=== PATIENT | female | born 1985 | race Caucasian/White ===

== ENCOUNTER 2017-08-15 00:28 | Emergency (ER) | payer BC ==
[~2017-08-15] VITALS: Ht 149.9 cm; Wt 54.4 kg
[2017-08-15 01:51] LABS: BASOPHILS ABSOLUTE AUTO 0.04 K/mm3 (0.00-0.23); BASOPHILS PERCENT AUTO 0 % (0-2); EOSINOPHILS ABSOLUTE AUTO 0.16 K/mm3 (0.00-0.68); EOSINOPHILS PERCENT AUTO 1 % (0-6); Hematocrit 39.5 % (33.0-51.0); Hemoglobin 13.3 g/dL (11.5-16.0); IMMATURE GRAN ABSOLUTE AUTO 0.04 K/mm3 (0.00-0.10); IMMATURE GRAN PERCENT AUTO 0 % (0-1); LYMPHOCYTES ABSOLUTE AUTO 3.52 K/mm3 (0.84-5.20); LYMPHOCYTES PERCENT AUTO 28 % (21-46); MONOCYTES ABSOLUTE AUTO 0.81 K/mm3 (0.16-1.47); MONOCYTES PERCENT AUTO 7 % (4-13); Mean Corpuscular HGB 31.1 pg (26.0-34.0); Mean Corpuscular HGB Conc 33.7 g/dL (31.5-36.5); Mean Corpuscular Volume 92 fL (80-100); Mean Platelet Volume 9.7 fL (9.1-12.4); NEUTROPHILS ABSOLUTE AUTO 7.83 K/mm3 (1.96-9.15); NEUTROPHILS PERCENT AUTO 63 % (41-73); Platelet Count 294 K/mm3 (150-400); RDW Coefficient Variation 12.2 % (11.7-14.2); RDW Standard Deviation 41.5 fL (35.1-46.3); Red Blood Cell Count 4.28 M/mm3 (3.80-5.20)
[2017-08-15 02:05] LABS: Alanine Aminotransfer (ALT/SGP 24 U/L (12-78); Albumin, Blood 3.6 g/dL (3.4-5.0); Albumin/Globulin Ratio 1.1 (0.8-1.8); Alk Phos 76 U/L (50-136); Anion Gap 8 mmol/L (6-16); Aspartate Aminotrans (AST/SGOT 18 U/L (12-37); Bilirubin, Total 0.2 mg/dL (0.1-1.0); Blood Urea Nitrogen 9 mg/dL (8-24); Bun/Creatinine Ratio 12.8 (12.0-20.0); CO2, Blood 23 mmol/L (21-32); Calcium, Blood 8.3 mg/dL (8.5-10.1); Chloride, Blood 110 mmol/L (98-108); Creatinine, Blood 0.71 mg/dL (0.40-1.00); Globulin, Blood 3.4 g/dL (2.2-4.0); Glomerular Filtration Rate >60 (60-); Glucose, Blood 100 mg/dL (70-99); Potassium, Blood 3.4 mmol/L (3.5-5.5); Sodium, Blood 141 mmol/L (136-145); Troponin I <0.015 ng/mL (0.000-0.040)
[2017-08-15 02:08] LABS: Free Thyroxine 1.19 ng/dL (0.70-1.60)
== END 2017-08-15 03:34 | disposition home or self-care (01) ==
LOC: ER 00:28
PROVIDERS: Emergency Medicine
DX: R00.0 Tachycardia, unspecified (principal); F17.210 Nicotine dependence, cigarettes, uncomplicated
CPT/HCPCS: 36415; 80053; 84439; 84443; 84484; 84703; 85025; 93005; 93010; 99283

== ENCOUNTER → 2018-07-17 | Outpatient (CLI) | payer BC | END | disposition home or self-care (01) | LOC: LAB SHORT 16:45 → LAB 16:45 | PROVIDERS: Nurse Practitioner | DX: Z01.419 Encounter for gynecological examination (general) (routine) without abnormal findings (principal) | CPT/HCPCS: G0145 ==

== ENCOUNTER 2020-08-05 06:24 | Day surgery (SDC) | payer BC ==
[~2020-08-05] VITALS: Ht 149.9 cm; Wt 51.2 kg
[~2020-08-05 06:24] MED LIST: Nicoderm Cq1 EACH TOP
--- NOTE | 2020-08-05 09:42 | NUR ---
Dressing to procedure site clean, dry, intact with no visible drainage, swelling, erythema or bruising noted.
--- NOTE | 2020-08-05 10:35 | NUR ---
Dressing to procedure site clean, dry, intact with no visible drainage, swelling, erythema or bruising noted. PT provided ice pack and abd binder, instructed how to use. Patient up to Ambulate independently. Gait steady. Discharge instructions reviewed with patient. Patient verbalizes understanding. Copy given to patient to take home. Patient States Post-Procedure ride home has been arranged. Discharged via wheelchair to private car for ride home.
--- NOTE | 2020-08-06 10:08 | NUR ---
08/06/20 1008 Karolyn Oscar VERIFICATIONS: EDIT CHART.
== END 2020-08-05 10:38 | disposition home or self-care (01) ==
LOC: ORSCMMR 06:24 → ORD 08:00 → ORSCMMR 10:38
PROVIDERS: Surgery
PROC: 0WUF0JZ Supplement Abdominal Wall with Synthetic Substitute, Open Approach (ICD-10-PCS; principal; 2020-08-05 08:00)
DX: K43.9 Ventral hernia without obstruction or gangrene (principal); F17.210 Nicotine dependence, cigarettes, uncomplicated
CPT/HCPCS: A9270; C1781; J0690; J1100; J1885; J2250; J2405; J2704; J3010; J7120

== ENCOUNTER → 2023-03-03 | Outpatient (CLI) | payer OTHER | END | disposition home or self-care (01) | LOC: LAB SHORT 18:59 → LAB 18:59 | DX: N39.0 Urinary tract infection, site not specified (principal) | CPT/HCPCS: 87077; 87086; 87186 ==

== ENCOUNTER 2023-04-16 09:10 | Emergency (ER) | payer BC, OTHER ==
[~2023-04-16] VITALS: Ht 149.9 cm; Wt 56.7 kg
[2023-04-16] MEDS ORDERED: IBU800 M1 PO (09:37)
[2023-04-16 10:02] LABS: BASOPHILS ABSOLUTE AUTO 0.04 K/mm3 (0.00-0.23); BASOPHILS PERCENT AUTO 0 % (0-2); EOSINOPHILS ABSOLUTE AUTO 0.19 K/mm3 (0.00-0.68); EOSINOPHILS PERCENT AUTO 1 % (0-6); Hematocrit 40.9 % (33.0-51.0); Hemoglobin 13.8 g/dL (11.5-16.0); IMMATURE GRAN ABSOLUTE AUTO 0.08 K/mm3 (0.00-0.10); IMMATURE GRAN PERCENT AUTO 1 % (0-1); LYMPHOCYTES ABSOLUTE AUTO 2.04 K/mm3 (0.84-5.20); LYMPHOCYTES PERCENT AUTO 13 % (21-46); MONOCYTES ABSOLUTE AUTO 1.08 K/mm3 (0.16-1.47); MONOCYTES PERCENT AUTO 7 % (4-13); Mean Corpuscular HGB 31.6 pg (26.0-34.0); Mean Corpuscular HGB Conc 33.7 g/dL (31.5-36.5); Mean Corpuscular Volume 94 fL (80-100); Mean Platelet Volume 9.7 fL (9.1-12.4); NEUTROPHILS ABSOLUTE AUTO 12.26 K/mm3 (1.96-9.15); NEUTROPHILS PERCENT AUTO 78 % (41-73); Platelet Count 326 K/mm3 (150-400); RDW Standard Deviation 44.9 fL (35.1-46.3); Red Blood Cell Count 4.37 M/mm3 (3.80-5.20); White Blood Cell Count 15.69 K/mm3 (4.00-11.30)
[2023-04-16 10:39] LABS: Albumin, Blood 3.6 g/dL (3.4-5.0); Bilirubin, Direct 0.2 mg/dL (0.0-0.3); Bilirubin, Indirect 0.5 mg/dL (0.1-0.7); Bilirubin, Total 0.7 mg/dL (0.1-1.0); Bun/Creatinine Ratio 16.5 (12.0-20.0); Calcium, Blood 8.4 mg/dL (8.5-10.1); Creatinine, Blood 0.67 mg/dL (0.40-1.00); Globulin, Blood 3.5 g/dL (2.2-4.0); Potassium, Blood 3.9 mmol/L (3.5-5.5); Total Protein, Blood 7.1 g/dL (6.4-8.2)
[2023-04-16] MEDS ORDERED: ONDA4ODT MM (12:40)
[2023-04-16 12:55] VITALS: BP 111/70
== END 2023-04-16 12:59 | disposition home or self-care (01) ==
LOC: ER 09:10
PROVIDERS: Student in an Organized Health Care Education/Training Program
DX: K52.9 Noninfective gastroenteritis and colitis, unspecified (principal); N39.0 Urinary tract infection, site not specified; Z79.899 Other long term (current) drug therapy; Z87.891 Personal history of nicotine dependence
CPT/HCPCS: 74177; 80048; 80076; 83690; 84703; 85025; 96361; 96374-59; 96375; 99284-25; A9270; J1885; J2405; J7030; Q9967

== ENCOUNTER → 2023-04-24 | Outpatient (CLI) | payer OTHER ==
[~2023-04-24] MED LIST changes: +IBU800 M1 PO; +ONDA4ODT MM
== END | disposition home or self-care (01) ==
LOC: LAB SHORT 07:21 → PLD 07:21
DX: R87.619 Unspecified abnormal cytological findings in specimens from cervix uteri (principal)
CPT/HCPCS: 88305

== ENCOUNTER 2023-06-22 10:37 | Day surgery (SDC) | payer OTHER ==
[~2023-06-22] VITALS: Ht 149.9 cm; Wt 56.5 kg
--- NOTE | 2023-06-22 12:22 | NUR ---
06/22/23 1222 Maria Del Carmen Gibson 30 MLS OF LIDOCAINE 1% MIXED WITH 10 UNITS OF VASOPRESSIN PER DR KUNZ FOR INJECTION AT OPSITE.
[2023-06-22 13:35] VITALS: BP 117/76
--- NOTE | 2023-06-22 14:00 | NUR ---
06/22/23 1400 MARIO ALBERTO CARRANZA PT URINATED PRIOR TO DC:CLEAR,COPIOUS AND W/OUT PAIN. END NOTE RDS.
== END 2023-06-22 13:45 | disposition home or self-care (01) ==
LOC: ORSCSDS 10:37
PROVIDERS: Obstetrics & Gynecology
PROC: 0UBC7ZX Excision of Cervix, Via Natural or Artificial Opening, Diagnostic (ICD-10-PCS; principal; 2023-06-22 12:00)
DX: D06.9 Carcinoma in situ of cervix, unspecified (principal); F17.210 Nicotine dependence, cigarettes, uncomplicated
CPT/HCPCS: 88305; A9270; J1100; J1885; J2001; J2250; J2405; J3010

== ENCOUNTER → 2023-08-10 | Outpatient (CLI) | payer OTHER ==
[2023-08-10 15:59] LABS: Source, Urine Clean Catch
[2023-08-10 17:14] LABS: Appearance, Urine Clear (Clear); Bilirubin, Urine Neg (Neg); Blood, Urine 1+ (Neg); Color, Urine Yellow (P-Yellow); Glucose Qualitative, Urine Neg (Neg); Ketones, Urine Neg (Neg); Leukocyte Esterase, Urine 1+ (Neg); Nitrite, Urine Neg (Neg); Protein, Urine Neg (Neg); Urobilinogen, Urine NORM (Normal); pH, Urine 6.5 (5.0-8.0)
[2023-08-10 17:22] LABS: Bacteria Mod /hpf; Squamous Epithelial Cells Rare /hpf (Few)
== END ==
LOC: LAB 15:57 → LAB SHORT 15:57
PROVIDERS: Obstetrics & Gynecology
DX: R30.0 Dysuria (principal)
CPT/HCPCS: 81001; 87077; 87086; 87186

== ENCOUNTER → 2023-10-30 | Outpatient (CLI) | payer OTHER ==
[2023-11-02 13:51] LABS: APTIMA MEDIA TYPE Urine; C. TRACHOMATIS BY TMA Negative (Negative); N. GONORRHOEAE BY TMA Negative (Negative); SPECIMEN SOURCE Urine
== END ==
LOC: LAB SHORT 16:43 → LAB 16:43
PROVIDERS: Obstetrics & Gynecology
DX: Z11.3 Encounter for screening for infections with a predominantly sexual mode of transmission (principal)
CPT/HCPCS: 87491; 87591

== ENCOUNTER → 2024-03-19 | Outpatient (CLI) | payer OTHER | END | disposition home or self-care (01) | LOC: LAB 08:50 → LAB SHORT 08:50 | DX: O09.521 Supervision of elderly multigravida, first trimester (principal) | CPT/HCPCS: 87081; 87150 ==

== ENCOUNTER 2024-04-15 08:33 | Inpatient (IN) | payer OTHER ==
[2024-04-15] VITALS (22 sets, daily range): BP systolic 111–150; BP diastolic 69–94
[~2024-04-15] VITALS: Ht 149.9 cm; Wt 73.2 kg
[2024-04-15] MEDS ORDERED: PRENATAL TABLE1 EAC2 (10:51)
[2024-04-15] MEDS ORDERED: OMEP20ER PO (10:51)
[2024-04-15] MEDS ORDERED: Carboprost Tromethamine 250 MCG/ML 1ML Amp IM PRN (11:10)
[2024-04-15] MEDS ORDERED: Acetaminophen 500 MG Tab PO PRN (11:10)
[2024-04-15] MEDS ORDERED: Ondansetron HCl 2 MG / ML 2ML Vial IV PRN (11:10)
[2024-04-15] MEDS ORDERED: Penicillin G Potassium 5,000,000 UNITS in NS 250 ML IV ONE (11:10)
[2024-04-15] MEDS ORDERED: Tranexamic Acid 100 ML IV SCH (11:10)
[2024-04-15] MEDS ORDERED: Misoprostol 200 MCG Tab BC PRN (11:10)
[2024-04-15] MEDS ORDERED: OXYTOCIN/RINGER'S LACTATE 500 ML IV PRN (11:10)
[2024-04-15] MEDS ORDERED: Lactated Ringer's 1,000 ML IV PRN (11:10)
[2024-04-15] MEDS ORDERED: Oxytocin 10 Unit / ML Vial IM PRN (11:10)
[2024-04-15] MEDS ORDERED: Misoprostol 200 MCG Tab PR PRN (11:10)
[2024-04-15] MEDS ORDERED: Methylergonovine Maleate 0.2MG / ML 1ML Amp IM PRN (11:10)
[2024-04-15] MEDS ORDERED: FentaNYL Citrate 50 MCG/ML 2 ML Injection IV PRN (11:10)
[2024-04-15] MEDS ORDERED: Calcium Carbonate 500 MG Tab Chew PO SCH (11:15)
[2024-04-15 11:43] LABS: BASOPHILS ABSOLUTE AUTO 0.03 K/mm3 (0.00-0.23); BASOPHILS PERCENT AUTO 0 % (0-2); EOSINOPHILS ABSOLUTE AUTO 0.06 K/mm3 (0.00-0.68); EOSINOPHILS PERCENT AUTO 1 % (0-6); Hematocrit 37.2 % (33.0-51.0); Hemoglobin 12.8 g/dL (11.5-16.0); IMMATURE GRAN PERCENT AUTO 1 % (0-1); LYMPHOCYTES PERCENT AUTO 17 % (21-46); MONOCYTES ABSOLUTE AUTO 0.85 K/mm3 (0.16-1.47); MONOCYTES PERCENT AUTO 7 % (4-13); Mean Corpuscular HGB 31.5 pg (26.0-34.0); Mean Corpuscular HGB Conc 34.4 g/dL (31.5-36.5); Mean Corpuscular Volume 92 fL (80-100); Mean Platelet Volume 10.4 fL (9.1-12.4); NEUTROPHILS ABSOLUTE AUTO 9.17 K/mm3 (1.96-9.15); NEUTROPHILS PERCENT AUTO 75 % (41-73); Platelet Count 231 K/mm3 (150-400); RDW Coefficient Variation 14.3 % (11.7-14.2); RDW Standard Deviation 47.4 fL (35.1-46.3); Red Blood Cell Count 4.06 M/mm3 (3.80-5.20); White Blood Cell Count 12.31 K/mm3 (4.00-11.30)
[2024-04-15] MEDS ORDERED: FentaNYL 2mcg/ml-Bup 0.1% Epd 250 ML EPI PRN (14:20)
[2024-04-15] MEDS ORDERED: Lactated Ringer's 1,000 ML IV SCH ×2 (14:20)
[2024-04-15] MEDS ORDERED: ePHEDrine Sulfate 50 MG/ML 1ML Injection XX PRN (14:20)
[2024-04-15] MEDS ORDERED: Penicillin G Potassium 2,500,000 UNITS in Dextrose 5% 100 ML IV SCH (15:00)
[2024-04-16] VITALS (15 sets, daily range): BP systolic 117–140; BP diastolic 64–88
[2024-04-16] MEDS ORDERED: Ketorolac Tromethamine 30mg Vial IV PRN (04:15)
[2024-04-16] MEDS ORDERED: Lactated Ringer's 1,000 ML IV SCH (04:15)
[2024-04-16] MEDS ORDERED: Lanolin Cream TOP PRN (04:15)
[2024-04-16] MEDS ORDERED: Benzocaine Topical Anesthetic Spray 60GM TOP PRN (04:20)
[2024-04-16] MEDS ORDERED: Polyethylene Glycol 3350 17 gm PO PRN (04:20)
[2024-04-16] MEDS ORDERED: Ibuprofen 400 MG Tab PO PRN (04:20)
[2024-04-16] MEDS ORDERED: FLU VACC TS2024-25(6MOS UP)/PF 45 MCG/0.5 ML SYRINGE IM ONE (04:20)
[2024-04-16] MEDS ORDERED: Acetaminophen 325 MG TABLET PO PRN (04:20)
[2024-04-16] MEDS ORDERED: Witch Hazel/Glycerin PADS TOP PRN (04:20)
[2024-04-16] MEDS ORDERED: Omeprazole 20 MG CapCR PO SCH (06:00)
[2024-04-16] MEDS ORDERED: Prenatal Vit/FE Fumarate/FA 1 Tab PO SCH (09:00)
[2024-04-16 10:25] LABS: BASOPHILS ABSOLUTE AUTO 0.02 K/mm3 (0.00-0.23); BASOPHILS PERCENT AUTO 0 % (0-2); EOSINOPHILS ABSOLUTE AUTO 0.01 K/mm3 (0.00-0.68); EOSINOPHILS PERCENT AUTO 0 % (0-6); Hematocrit 32.7 % (33.0-51.0); Hemoglobin 11.4 g/dL (11.5-16.0); IMMATURE GRAN ABSOLUTE AUTO 0.09 K/mm3 (0.00-0.10); IMMATURE GRAN PERCENT AUTO 1 % (0-1); LYMPHOCYTES ABSOLUTE AUTO 1.43 K/mm3 (0.84-5.20); LYMPHOCYTES PERCENT AUTO 9 % (21-46); MONOCYTES ABSOLUTE AUTO 0.79 K/mm3 (0.16-1.47); MONOCYTES PERCENT AUTO 5 % (4-13); Mean Corpuscular HGB 31.7 pg (26.0-34.0); Mean Corpuscular HGB Conc 34.9 g/dL (31.5-36.5); Mean Corpuscular Volume 91 fL (80-100); Mean Platelet Volume 10.2 fL (9.1-12.4); NEUTROPHILS ABSOLUTE AUTO 13.56 K/mm3 (1.96-9.15); NEUTROPHILS PERCENT AUTO 85 % (41-73); Platelet Count 220 K/mm3 (150-400); RDW Standard Deviation 46.5 fL (35.1-46.3)
[2024-04-17 00:15] VITALS: BP 118/69
[2024-04-17 03:45] VITALS: BP 112/62
--- NOTE | 2024-04-17 07:19 | NUR ---
pt sleeping, baby sleeing in crib and fob sleeping in recliner
[2024-04-17 08:08] VITALS: BP 113/70
--- NOTE | 2024-04-17 09:40 | NUR ---
DC INSTRUCTIONS GONE OVER WITH PT, DENIES ANY QUESTIONS, ENCOURAGED TO CALL WITH ANY, HAS [facility] APPT AND HAS APPT MADE WITH [facility] FOR 2 [address] KUNZ. HAS COPY OF DC INSTRUCTIONS
--- NOTE | 2024-04-17 10:15 | NUR ---
AMBULATE OUT FOR DISCHARGE WITH FOB AND BABY
== END 2024-04-17 10:15 | disposition home or self-care (01) | DRG 807 ==
LOC: OBS 08:33 → BC 08:33 → OBS 10:45 → BC 10:46
PROVIDERS: Family Medicine; ADMIT Obstetrics & Gynecology
PROC: 10E0XZZ Delivery of Products of Conception, External Approach (ICD-10-PCS; principal; 2024-04-16)
PROC: 3E0R3BZ Introduction of Anesthetic Agent into Spinal Canal, Percutaneous Approach (ICD-10-PCS; 2024-04-16)
PROC: 00HU33Z Insertion of Infusion Device into Spinal Canal, Percutaneous Approach (ICD-10-PCS; 2024-04-16)
DX: O42.12 Full-term premature rupture of membranes, onset of labor more than 24 hours following rupture (principal); Z37.0 Single live birth; O48.0 Post-term pregnancy; O99.824 Streptococcus B carrier state complicating childbirth; O77.0 Labor and delivery complicated by meconium in amniotic fluid; O69.81X0 Labor and delivery complicated by cord around neck, without compression, not applicable or unspecified; O99.02 Anemia complicating childbirth; Z3A.40 40 weeks gestation of pregnancy; Z87.891 Personal history of nicotine dependence; Z79.899 Other long term (current) drug therapy; Z98.890 Other specified postprocedural states; O71.82 Other specified trauma to perineum and vulva
CPT/HCPCS: 36415; 51702; 59025; 81003; 85025; 86850; 86900; 86901; 87210; 99214; A9270; J1885; J2405; J2540; J2590; J7050; J7120

== ENCOUNTER → 2024-05-02 | Outpatient (CLI) | payer OTHER ==
[~2024-05-02] MED LIST changes: +OMEP20ER PO; +PRENATAL TABLE1 EAC2
[2024-05-02 13:22] LABS: Source, Urine Fem Cath
[2024-05-02 14:16] LABS: Appearance, Urine Hazy (Clear); Bilirubin, Urine Neg (Neg); Blood, Urine 4+ (Neg); Color, Urine Yellow (P-Yellow); Glucose Qualitative, Urine Neg (Neg); Ketones, Urine Neg (Neg); Leukocyte Esterase, Urine 3+ (Neg); Nitrite, Urine Neg (Neg); Protein, Urine Neg (Neg); Urobilinogen, Urine NORM (Normal)
[2024-05-02 14:33] LABS: Amorphous Light (0-Heavy); Bacteria Few /hpf; Squamous Epithelial Cells Mod /hpf (Few)
== END | disposition home or self-care (01) ==
LOC: LAB 10:25 → LAB SHORT 10:25
PROVIDERS: Obstetrics & Gynecology
DX: R30.0 Dysuria (principal)
CPT/HCPCS: 81001; 87077; 87086; 87147; 87186

== ENCOUNTER 2024-08-05 06:00 | Day surgery (SDC) | payer OTHER ==
[~2024-08-05] VITALS: Ht 148 cm; Wt 60.8 kg
[2024-08-05] VITALS (15 sets, daily range): BP systolic 104–126; BP diastolic 72–97
[2024-08-05] MEDS ORDERED: Dexamethasone Sod Phos 10 MG/ML 1ML VIAL ONE (06:05)
[2024-08-05] MEDS ORDERED: Rocuronium Bromide 10 MG/ML 5ML Injection IV ONE (06:05)
[2024-08-05] MEDS ORDERED: Ondansetron HCl 2 MG / ML 2ML Vial ONE (06:05)
[2024-08-05] MEDS ORDERED: Sugammadex Sodium 200 MG/2ML SDV (100 MG/ML) ONE (06:06)
[2024-08-05] MEDS ORDERED: propofoL 20 ML IV ONE (06:06)
[2024-08-05] MEDS ORDERED: FentaNYL Citrate 50 MCG/ML 5 ML Injection ONE (06:06)
[2024-08-05] MEDS ORDERED: CeFAZolin Sodium 2,000 MG in NS 100 ML IV SCH (06:15)
[2024-08-05] MEDS ORDERED: Lactated Ringer's 1,000 ML IV SCH ×2 (06:15→10:10)
[2024-08-05] MEDS ORDERED: Phenazopyridine HCl 100 MG Tab PO SCH (06:20)
[2024-08-05] MEDS ORDERED: Norethindrone0.35 MG PO (06:54)
[2024-08-05] MEDS ORDERED: Bupivacaine 0.5% HCl 5 MG/ML 30MLVIAL ONE (07:00)
[2024-08-05] MEDS ORDERED: HYDROmorphone HCl/Pf 1MG SYR IV PRN (10:05)
[2024-08-05] MEDS ORDERED: DiphenhydrAMINE HCL 25 MG Cap PO PRN (10:05)
[2024-08-05] MEDS ORDERED: FLU VACC TS2024-25(6MOS UP)/PF 45 MCG/0.5 ML SYRINGE IM SCH (10:05)
[2024-08-05] MEDS ORDERED: Metoclopramide HCl 5MG / ML 2ML Vial IV PRN (10:10)
[2024-08-05] MEDS ORDERED: Simethicone 80 MG Chew PO PRN (10:10)
[2024-08-05] MEDS ORDERED: OxyCODONE HCL 5 MG TAB PO PRN ×2 (10:10)
[2024-08-05] MEDS ORDERED: Ondansetron HCl 2 MG / ML 2ML Vial IV PRN (10:15)
[2024-08-05] MEDS ORDERED: Naloxone HCl 0.4MG / ML 1ML Vial IV PRN (10:15)
[2024-08-05] MEDS ORDERED: FentaNYL Citrate 50 MCG/ML 2 ML Injection ONE (10:21)
--- NOTE | 2024-08-05 11:05 | NUR ---
PT ARRIVED TO UNIT AT APROX 1055 FROM OR. LAP SITES X'S 4 C/D/I, DIANNE PAD IN PLACE AND DRY. PT DENIES NEEDING TO VOID AT THIS TIME, REPORTS PAIN TOLERABLE. PT GIVEN CLEAR LIQUIDS WILL ADVANCE TOLERATED. PT EDUCATED ON DC CRITERIA AND PT VERBALIZED UNDERSTANDING. PRIMARY RN TO ASSUME CARE AT THIS TIME.
[2024-08-05] MEDS ORDERED: IBUP800 PO (11:55)
[2024-08-05] MEDS ORDERED: ACET500 PO (11:55)
[2024-08-05] MEDS ORDERED: ONDA4ODT MM (11:56)
[2024-08-05] MEDS ORDERED: OXAYDO5 M1 PO (11:57)
[2024-08-05] MEDS ORDERED: SIME80CH PO (11:57)
[2024-08-05] MEDS ORDERED: Ketorolac Tromethamine 30mg Vial IV SCH (12:00)
[2024-08-05] MEDS ORDERED: Acetaminophen 500 MG Tab PO SCH (12:00)
--- NOTE | 2024-08-05 15:53 | NUR ---
DISCHARGE NOTE S/P LAP TOTAL HYSTER. VSS. TITRATED FROM 2L VIA NC TO ROOM AIR, SATs >90%. X4 LAP SITES C/D/I. MANAGING PAIN WITH PRESCRIBED MEDICATION AND KPAD. NO DRAINAGE ON DIANNE PAD. AMBULATING IN ROOM INDEPENDENTLY. VOIDING. DC HOME ORDERS IN PLACE. IV REMOVED. DC EDUCATION PROVIDED - PATIENT STATES UNDERSTANDING. PATIENT TRANSFERRED TO PERSONAL VEHICLE VIA WHEELCHAIR AT APPROX 1550. PERSONAL BELONGINGS WITH PATIENT.
[2024-08-06] MEDS ORDERED: Ibuprofen 400 MG Tab PO SCH (08:00)
[2024-08-06] MEDS ORDERED: Enoxaparin 40 MG/0.4 ML SYR SC SCH (09:00)
[2024-08-06] MEDS ORDERED: Polyethylene Glycol 3350 17 gm PO SCH (09:00)
== END 2024-08-05 15:57 | disposition home or self-care (01) ==
LOC: ORSCMMR 06:00 → ORD 07:30 → ORSCMMR 07:30 → SURS 10:40 → ORSCMMR 15:57 → SURS 15:57
PROVIDERS: Obstetrics & Gynecology
PROC: 0UT74ZZ Resection of Bilateral Fallopian Tubes, Percutaneous Endoscopic Approach (ICD-10-PCS; principal; 2024-08-05 07:30)
PROC: 0UT94ZZ Resection of Uterus, Percutaneous Endoscopic Approach (ICD-10-PCS; principal; 2024-08-05 07:30)
DX: D06.9 Carcinoma in situ of cervix, unspecified (principal); D25.0 Submucous leiomyoma of uterus; N94.6 Dysmenorrhea, unspecified; K66.0 Peritoneal adhesions (postprocedural) (postinfection); Z87.891 Personal history of nicotine dependence
CPT/HCPCS: 86850; 86900; 86901; 88307; A9270; J0690; J1100; J2405; J2704; J3010; J7120

== ENCOUNTER → 2024-11-11 | Outpatient (CLI) | payer OTHER ==
[~2024-11-11] MED LIST changes: +ACET500 PO; +IBUP800 PO; +Norethindrone0.35 MG PO; +OXAYDO5 M1 PO; +SIME80CH PO
== END ==
LOC: LAB 17:18 → LAB SHORT 17:18
DX: N39.0 Urinary tract infection, site not specified (principal)
CPT/HCPCS: 87077; 87086; 87186

== ENCOUNTER 2024-12-22 23:06 | Emergency (ER) | payer OTHER ==
[~2024-12-22] VITALS: Ht 147.3 cm; Wt 61.2 kg
[2024-12-22 23:28] VITALS: BP 124/93
[2024-12-23] MEDS ORDERED: Amoxicillin 500 MG Cap PO ONE (00:40)
[2024-12-23] MEDS ORDERED: Ketorolac Tromethamine 15mg Vial IM ONE (00:40)
[2024-12-23] MEDS ORDERED: AMOX500 PO (00:42)
== END 2024-12-23 00:59 | disposition home or self-care (01) ==
LOC: ER 23:06
DX: J02.0 Streptococcal pharyngitis (principal); F17.200 Nicotine dependence, unspecified, uncomplicated
CPT/HCPCS: 87430; 96372; 99282; A9270; J1885